=== PATIENT | male | born 1975 | race Caucasian/White ===

== ENCOUNTER 2017-08-09 23:24 | Emergency (ER) | payer MEDICAID ==
[~2017-08-09] VITALS: Ht 185.4 cm; Wt 104.8 kg
[2017-08-10 00:09] VITALS: Ht 185.4 cm; Wt 104.8 kg
[2017-08-10 04:28] VITALS: BP 158/100
== END 2017-08-10 04:28 | disposition home or self-care (01) ==
LOC: ED 23:24
DX: S81.831A Puncture wound without foreign body, right lower leg, initial encounter (principal); X58.XXXA Exposure to other specified factors, initial encounter; Y93.89 Activity, other specified; Y92.89 Other specified places as the place of occurrence of the external cause; Y99.8 Other external cause status
CPT/HCPCS: 90715